=== PATIENT | female | born 2005 | race Caucasian/White ===

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

== ENCOUNTER 2023-01-14 09:46 | Outpatient (CLI) | payer OTHER, SELFPAY ==
--- NOTE | ~2023-01-14 | US_ITS ---
Pelvic ultrasound. Clinical History: Irregular menses, polycystic ovarian syndrome Technique: Realtime transabdominal and transvaginal scanning of the pelvis was performed. Color flow Doppler and Doppler spectral analysis were performed. Findings: The uterus is anteverted. The endometrial stripe has a thickness of 7 mm. No focal mass is identified. The right ovary measures 2.8 x 2.7 x 2.0 cm. No significant right ovarian or adnexal mass is seen. The left ovary measures 3.7 x 3.3 x 1.9 cm. No significant left ovarian or adnexal mass is seen. There is no evidence of free fluid in the cul de sac. Impression: Unremarkable pelvic ultrasound. Reviewed, dictated and finalized at location . Impression: Unremarkable pelvic ultrasound.
== END 2023-01-14 09:47 ==
PROVIDERS: PCP Physician Assistant; Visit Provider Physician Assistant
DX: N92.6 Irregular menstruation, unspecified (principal)
CPT/HCPCS: 76830; 76856

== ENCOUNTER 2023-11-16 19:48 | Emergency (ER) | payer OTHER, SELFPAY ==
[2023-11-16 19:58] VITALS: BP 125/79; PULSE 77; RESP 16; TEMP 36.6; O2SAT 100
--- NOTE | 2023-11-16 20:20 | ED.EYEPROB ---
HPI - Eye Problem General Chief complaint: Eye Problems Stated complaint: Left Eye Irritation Time Seen by Provider: 11/16/23 20:16 Source: patient and RN notes reviewed Mode of arrival: ambulatory Limitations: no limitations History of Present Illness HPI Narrative: Patient presents today complaining of left eye soreness, redness, and green drainage that started 2 hours prior to arrival. No vision changes or additional symptoms. She does wear glasses. Related Data Home Medications Medication Instructions Recorded Confirmed amoxicillin 875 mg-potassium 1 tablet PO BID 11/16/23 11/16/23 clavulanate 125 mg tablet Allergies Allergy/AdvReac Type Severity Reaction Status Date / Time No Known Allergies Allergy Verified 11/16/23 19:57 Review of Systems Review of Systems: CONSTITUTIONAL: Denies body aches, fever, chills, or sweats. EYES: Denies visual changes. + redness and discharge to the left eye ENT: Denies rhinorrhea, congestion, sore throat, or otalgia. CARDIOVASCULAR: Denies chest pain, palpitations, or edema. RESPIRATORY: Denies cough or dyspnea. GASTROINTESTINAL: Denies abdominal pain, nausea, vomiting, or diarrhea. GENITOURINARY: Denies dysuria or hematuria. SKIN: Denies rash, itching, or wounds. MUSCULOSKELETAL: Denies back pain, joint pain, or myalgia. NEUROLOGIC: Denies headache, numbness, tingling, or weakness. PSYCH: Denies depression or anxiety. [facility] Social History Social History Smoking status: Never smoker Alcohol intake: never Substance use: never Substance use type: does not use Living arrangements: with family Spiritual care concerns: No Comments At time of signature, I have reviewed and agree with nursing past medical, surgical, social and family history unless otherwise noted. Please see nursing chart for further information. There is no relevant family history pertinent to the presenting complaint Exam Narrative: GENERAL: Well-appearing, well-nourished, and in no acute distress. HEAD: Normocephalic, atraumatic. EYES: EOMI. PERRL. Left eye: Moderately injected conjunctiva with small amount of green purulent discharge. Lids and lashes normal. Right eye normal. ENT: Mucous membranes pink and moist. NECK: Normal AROM. CHEST: No respiratory distress. EXTREMITIES: Normal range of motion. No edema. SKIN: Warm, dry, no rash. Capillary refill normal. Normal skin turgor. NEURO: No focal deficits. Alert and oriented x3. Gait steady. PSYCH: Normal affect. No signs of depression or anxiety. Course Course Level of Care: Express Care Visit Vital Signs Vital signs: Vital Signs Temperature 97.9 F 11/16/23 19:58 Pulse Rate 77 11/16/23 19:58 Respiratory Rate 16 11/16/23 19:58 Blood Pressure 125/79 11/16/23 19:58 Pulse Oximetry 100 11/16/23 19:58 Oxygen Delivery Room Air 11/16/23 19:58 Temperature 97.9 F 11/16/23 19:58 Pulse Rate 77 11/16/23 19:58 Respiratory Rate 16 11/16/23 19:58 Blood Pressure 125/79 11/16/23 19:58 Pulse Oximetry 100 11/16/23 19:58 Oxygen Delivery Room Air 11/16/23 19:58 Reviewed MDM - Eye Problem MDM Narrative Medical decision making narrative: Patient will be treated with Polytrim for bacterial conjunctivitis. Anticipatory guidance given. Differential Diagnosis Differential diagnosis: Likely corneal abrasion and conjunctivitis Critical Care Time Critical Care Time Critical Care Time: No Discharge Plan Discharge Clinical Impression: Acute bacterial conjunctivitis of left eye Patient Disposition: Home, Self-Care Condition: Stable Instructions: Conjunctivitis (ED) Additional Instructions: Please use the eyedrops as prescribed. Wash your hands frequently, especially before and after use of the drops. Follow-up with your PCP or eye doctor in 2-3 days if symptoms are not improving. Your blood pressure was horacio
== END 2023-11-16 20:25 | disposition home or self-care (01) ==
PROVIDERS: Emergency Provider Nurse Practitioner; PCP Physician Assistant
DX: H10.32 Unspecified acute conjunctivitis, left eye (principal)
CPT/HCPCS: 99213; G0463